=== PATIENT | male | born 1970 | race Caucasian/White ===

== ENCOUNTER 2019-12-16 18:43 | Emergency (ER) | payer SELFPAY ==
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
[2019-12-16 19:11] VITALS: TEMP 97.8; O2SAT 93
[2019-12-16 19:20] VITALS: BP 158/102
== END 2019-12-16 19:18 ==
LOC: ER 18:43
DX: Z02.89 Encounter for other administrative examinations (principal); V47.5XXA Car driver injured in collision with fixed or stationary object in traffic accident, initial encounter; Y92.410 Unspecified street and highway as the place of occurrence of the external cause